=== PATIENT | female | born 1960 | race Caucasian/White ===

== ENCOUNTER 2020-07-12 20:09 | Emergency (ER) | payer MEDICARE, OTHER ==
[~2020-07-12 20:09] MED LIST: AMLODIPINE BESY10 MG PO; ASPIRIN EC81 M1 PO; CLARITIN10 MG PO; FLOMAX0.4 MG PO; LEVO-T100 MCG PO; NORCO 5-325 TA1 EACH PO; PLAVIX75 MG PO; SINGULAIR10 MG PO; STOOL SOFTENER100 MG PO; TRANDATE100 MG PO; ZOFRAN4 MG PO; [UNRECOGNIZED DRUG - REMARK]
[2020-07-12] MEDS ORDERED: NORCO 5-325 TA1 EACH PO (22:19)
== END 2020-07-12 23:00 | disposition home or self-care (01) ==
LOC: FER 20:09
DX: S42.302A Unspecified fracture of shaft of humerus, left arm, initial encounter for closed fracture (principal); W23.0XXA Caught, crushed, jammed, or pinched between moving objects, initial encounter
CPT/HCPCS: 73080

== ENCOUNTER 2020-09-25 21:11 | Emergency (ER) | payer MEDICARE, OTHER ==
[2020-09-25 22:26] LABS: EOSINOPHIL 2.4 % (0-5); HCT 41.9 % (37.0-47.0); HGB 14.2 g/dl (12.5-16.0); LYMPHOCYTE 32.4 % (15-48); MCH 28.3 pg (25.0-31.0); MCHC 33.9 g/dL (32.0-36.0); MCV 83.6 fL (78.0-100.0); MONOCYTE 6.4 % (0-12); MPV 10.6 fL (6.0-9.5); NEUTROPHIL 57.6 % (41-80); NRBC 0; PLT 330 K/uL (150-400); RBC 5.01 M/uL (4.20-5.40); RDW 12.5 % (11.5-14.0); WBC 8.2 K/uL (4.0-10.5)
[2020-09-25 22:44] LABS: BUN/CREAT RATIO (CALC) 11.1 RATIO; CREATININE 1.17 mg/dL (0.51-0.95); URIC ACID 6.9 mg/dL (2.6-6.2)
[2020-09-25] MEDS ORDERED: CEPHALEXIN500 M1 PO (23:47)
== END 2020-09-25 23:56 | disposition home or self-care (01) ==
LOC: FER 21:11
PROVIDERS: Nurse Practitioner Family
DX: M70.32 Other bursitis of elbow, left elbow (principal); J45.909 Unspecified asthma, uncomplicated; E03.9 Hypothyroidism, unspecified; I25.2 Old myocardial infarction; Z79.02 Long term (current) use of antithrombotics/antiplatelets; Z79.899 Other long term (current) drug therapy; Z79.82 Long term (current) use of aspirin
CPT/HCPCS: 36415; 80048; 84550; 85025; 96372; J1885

== ENCOUNTER 2020-12-15 11:38 | Emergency (ER) | payer MEDICARE, OTHER ==
[~2020-12-15 11:38] MED LIST changes: +CEPHALEXIN500 M1 PO
== END 2020-12-15 16:53 | disposition left against medical advice (07) ==
LOC: FER 11:38
DX: M54.50 Low back pain, unspecified (principal); Z53.8 Procedure and treatment not carried out for other reasons
CPT/HCPCS: 72110